=== PATIENT | male | born 1955 | race Caucasian/White ===

== ENCOUNTER 2016-11-14 08:24 | Observation (INO) | payer SELFPAY ==
[~2016-11-14] VITALS: Ht 177.8 cm; Wt 74.2 kg
[2016-11-14 09:34] LABS: CHLORIDE 105 mEq/L (99-109); POTASSIUM 4.5 mEq/L (3.7-5.4); SODIUM 142 mEq/L (136-147)
[2016-11-14 09:36] LABS: GLUCOSE 95 mg/dL (70-99)
[2016-11-14 09:37] LABS: ANION GAP 13 MEQ/L (2-14)
[2016-11-14 09:40] LABS: GFR ESTIMATE (CALCULATED) > 59 mL/min/
[2016-11-14 09:41] LABS: UREA NITROGEN (BUN) 7 mg/dL (9-23)
[2016-11-14 10:58] LABS: HEMATOCRIT 43.4 % (38.0-50.0); MCH 28.1 PG (29.0-34.0); MCHC 34.1 G/DL (30.0-36.0); MCV 82.5 FL (86-99); MEAN PLAT.VOLUME 13.1 uM^3 (9.0-12.4); PLATELET COUNT 133 K/uL (156-360); RBC DIS.WIDTH-CV 13.4 % (11.8-14.6); RED BLOOD COUNT 5.26 M/uL (4.00-5.50); WHITE BLOOD COUNT 5.1 K/uL (4.1-10.2)
[2016-11-14] MEDS ORDERED: ADVIL200 MG PO (11:58)
[2016-11-14] MEDS ORDERED: ZUBSOLV 0.7-0.1 EACH SL (12:42)
[2016-11-14 15:50] VITALS: BP 142/80
[2016-11-14 16:46] LABS: INFLUENZA A VIRAL ANTIGEN NEGATIVE; INFLUENZA B VIRAL ANTIGEN NEGATIVE
[2016-11-14 20:00] VITALS: BP 137/71
[2016-11-15] VITALS (7 sets, daily range): BP systolic 124–152; BP diastolic 63–92
[2016-11-16 03:51] VITALS: BP 137/80
[2016-11-16 08:34] VITALS: BP 154/71
[2016-11-16] MEDS ORDERED: DUONEB 2.5-0.5 M3 ML AEROSOL (11:13)
[2016-11-16] MEDS ORDERED: NICOTINE PATCH1 EAC2 TD (11:13)
[2016-11-16] MEDS ORDERED: ADVAIR HFA120 INHALA IH (11:13)
[2016-11-16] MEDS ORDERED: PREDNISONE10 MG PO (11:13)
[2016-11-16] MEDS ORDERED: LEVOFLOXACIN750 MG PO (11:13)
[2016-11-16] MEDS ORDERED: BREO ELLIPTA I1 EACH IH (12:15)
[2016-11-16 12:30] VITALS: BP 125/83
== END 2016-11-16 16:27 | disposition home or self-care (01) ==
LOC: EME 08:24 → 5WEST 11:30 → EDOF 11:30 → 5WEST 15:05
PROVIDERS: Internal Medicine
DX: J44.1 Chronic obstructive pulmonary disease with (acute) exacerbation (principal); R06.02 Shortness of breath; F17.200 Nicotine dependence, unspecified, uncomplicated; Z79.51 Long term (current) use of inhaled steroids
CPT/HCPCS: 71020; 80048; 85027; 87070; 87077; 87181; 87185; 87205; 87502; 87651 90; 93005; 93306; 94640; 94640 76; 94760; 94799; 99202; 99281; 99285; G0378; J0572; J0574; J1650; J2930; J7030; J7512

== ENCOUNTER → 2017-09-01 | Outpatient (CLI) | payer SELFPAY ==
[~2017-09-01] MED LIST: ADVAIR HFA120 INHALA IH; ADVIL200 MG PO; BREO ELLIPTA I1 EACH IH; DUONEB 2.5-0.5 M3 ML AEROSOL; LEVOFLOXACIN750 MG PO; NICOTINE PATCH1 EAC2 TD; PREDNISONE10 MG PO; ZUBSOLV 0.7-0.1 EACH SL
== END | disposition home or self-care (01) ==
LOC: RAD 10:22
DX: M46.04 Spinal enthesopathy, thoracic region (principal); M48.04 Spinal stenosis, thoracic region
CPT/HCPCS: 72070

== ENCOUNTER → 2017-11-13 | Outpatient (CLI) | payer SELFPAY | END | disposition home or self-care (01) | LOC: RAD 10:02 | DX: M50.323 Other cervical disc degeneration at C6-C7 level (principal) | CPT/HCPCS: 72050 ==